=== PATIENT | male | born 1990 | race African-American/Black ===

== ENCOUNTER 2022-12-16 17:38 | Inpatient (IN) | payer OTHER ==
[2022-12-16 18:22] VITALS: BMI 23.7
[2022-12-16] MEDS ORDERED: MAG HYDROX/AL HYDROX/SIMETH 30 ML UNIT-DOSE CUP PO PRN (22:10)
[2022-12-16] MEDS ORDERED: NALOXONE HCL (KLOXXADO) 8 MG SPRAY NS PRN (22:10)
[2022-12-16] MEDS ORDERED: chlordiazePOXIDE HCL 25 MG CAPSULE PO PRN (22:10)
[2022-12-16] MEDS ORDERED: chlordiazePOXIDE HCL 25 MG CAPSULE PO ONE (22:10)
[2022-12-16] MEDS ORDERED: MAGNESIUM HYDROX 2400MG/30ML ORAL SUSPENSION 30 ML CUP PO PRN (22:10)
[2022-12-16] MEDS ORDERED: LOPERAMIDE HCL 2 MG CAPSULE PO PRN (22:10)
[2022-12-16] MEDS ORDERED: BENZOCAINE/MENTHOL (CHLORASEPTIC ) LOZENGE MM PRN (22:10)
[2022-12-16] MEDS ORDERED: NALOXONE HCL 0.4 MG/ML VIAL IM PRN (22:10)
[2022-12-16] MEDS ORDERED: IBUPROFEN 600 MG TABLET (FP) PO PRN (22:10)
[2022-12-16] MEDS ORDERED: BENZONATATE 200 MG CAPSULE PO PRN (22:10)
[2022-12-16] MEDS ORDERED: IBUPROFEN 400 MG TABLET (FP) PO PRN (22:10)
[2022-12-16] MEDS ORDERED: guaiFENesin 600 MG TABLET.ER (FP) PO PRN (22:10)
[2022-12-16] MEDS ORDERED: ACETAMINOPHEN 325 MG TABLET (FP) PO PRN (22:10)
[2022-12-16] MEDS ORDERED: hydrOXYzine PAMOATE 25 MG CAPSULE (FP) PO PRN (22:10)
[2022-12-16] MEDS ORDERED: POLYETHYLENE GLYCOL (HEALTHYLAX) 3350 17 GM PACKET PO PRN (22:10)
[2022-12-16] MEDS ORDERED: DICYCLOMINE HCL 10 MG CAPSULE PO PRN (22:10)
[2022-12-16] MEDS ORDERED: METHOCARBAMOL 500 MG TABLET PO PRN (22:10)
[2022-12-16] MEDS ORDERED: ONDANSETRON *ODT* 4 MG TABLET SL PRN (22:10)
[2022-12-16] MEDS ORDERED: BISMUTH SUBSALICYLATE 524 MG/30 ML PO PRN (22:10)
[2022-12-16] MEDS ORDERED: chlordiazePOXIDE HCL 25 MG CAPSULE ONE (23:05)
[2022-12-16] MEDS: chlordiazePOXIDE HCL 25 MG CAPSULE PO SCH (23:23)
[2022-12-17] MEDS: chlordiazePOXIDE HCL 25 MG CAPSULE PO SCH ×4 (06:00→22:52)
[2022-12-17] MEDS: PRENATAL VITAMINS W/ FOLIC ACID TABLET (FP) PO SCH (10:33)
[2022-12-17] MEDS ORDERED: cloNIDine HCL 0.1 MG TABLET PO PRN (13:02)
[2022-12-17] MEDS: THIAMINE HCL 100 MG TABLET (FP) PO SCH (22:52)
[2022-12-17] MEDS: MELATONIN 5 MG TABLETS PO SCH (22:58)
[2022-12-18] MEDS: chlordiazePOXIDE HCL 25 MG CAPSULE PO SCH ×4 (06:06→22:34)
[2022-12-18] MEDS: PRENATAL VITAMINS W/ FOLIC ACID TABLET (FP) PO SCH (10:20)
[2022-12-18] MEDS: THIAMINE HCL 100 MG TABLET (FP) PO SCH (22:35)
[2022-12-18] MEDS: MELATONIN 5 MG TABLETS PO SCH (22:35)
[2022-12-19] MEDS ORDERED: chlordiazePOXIDE HCL 10 MG CAPSULE PO PRN
[2022-12-19] MEDS: chlordiazePOXIDE HCL 10 MG CAPSULE PO SCH ×2 (05:58→10:25)
[2022-12-19 09:22] VITALS: BP 134/74; PULSE 77; RESP 16; TEMP 98.6
[2022-12-19] MEDS: PRENATAL VITAMINS W/ FOLIC ACID TABLET (FP) PO SCH (10:25)
[2022-12-20] MEDS ORDERED: chlordiazePOXIDE HCL 10 MG CAPSULE PO SCH (05:00)
[2022-12-21] MEDS ORDERED: chlordiazePOXIDE HCL 10 MG CAPSULE PO ONE (05:00)
== END 2022-12-19 15:12 | disposition left against medical advice (07) | DRG 770 ==
LOC: YASAS 17:38 → Y3N 22:46 → Y6N 22:48
PROVIDERS: ADMIT Allergy & Immunology; ATTEND Surgery
PROC: HZ2ZZZZ Detoxification Services for Substance Abuse Treatment (ICD-10-PCS; principal; 2022-12-16)
DX: F10.230 Alcohol dependence with withdrawal, uncomplicated (principal); F14.20 Cocaine dependence, uncomplicated; F15.20 Other stimulant dependence, uncomplicated; F17.210 Nicotine dependence, cigarettes, uncomplicated; R03.0 Elevated blood-pressure reading, without diagnosis of hypertension
CPT/HCPCS: 87635

== ENCOUNTER 2022-12-21 10:16 | Inpatient (IN) | payer OTHER ==
[2022-12-21 10:42] VITALS: BMI 24.3
[2022-12-21 20:41] VITALS: TEMP 98
[2022-12-21] MEDS ORDERED: MAG HYDROX/AL HYDROX/SIMETH 30 ML UNIT-DOSE CUP PO PRN (20:42)
[2022-12-21] MEDS ORDERED: ACETAMINOPHEN 325 MG TABLET (FP) PO PRN (20:42)
[2022-12-21] MEDS ORDERED: MAGNESIUM HYDROX 2400MG/30ML ORAL SUSPENSION 30 ML CUP PO PRN (20:42)
[2022-12-21] MEDS ORDERED: METHOCARBAMOL 500 MG TABLET PO PRN (20:42)
[2022-12-21] MEDS ORDERED: LOPERAMIDE HCL 2 MG CAPSULE PO PRN (20:42)
[2022-12-21] MEDS ORDERED: NICOTINE POLACRILEX 2 MG GUM BUC PRN (20:42)
[2022-12-21] MEDS ORDERED: IBUPROFEN 400 MG TABLET (FP) PO PRN (20:42)
[2022-12-21] MEDS ORDERED: IBUPROFEN 600 MG TABLET (FP) PO PRN (20:42)
[2022-12-21] MEDS ORDERED: POLYETHYLENE GLYCOL (HEALTHYLAX) 3350 17 GM PACKET PO PRN (20:42)
[2022-12-21] MEDS ORDERED: BENZOCAINE/MENTHOL (CHLORASEPTIC ) LOZENGE MM PRN (20:42)
[2022-12-21] MEDS ORDERED: COLLOIDAL OATMEAL 1 BAR EACH TP PRN (20:42)
[2022-12-21] MEDS ORDERED: hydrOXYzine PAMOATE 25 MG CAPSULE (FP) PO PRN (20:42)
[2022-12-21] MEDS ORDERED: BENZONATATE 200 MG CAPSULE PO PRN (20:42)
[2022-12-21] MEDS ORDERED: guaiFENesin 600 MG TABLET.ER (FP) PO PRN (20:42)
[2022-12-21] MEDS: BACITRACIN 0.9 GM PACKET TP SCH (21:54)
[2022-12-21] MEDS ORDERED: MELATONIN 5 MG TABLETS PO SCH (22:00)
[2022-12-21] MEDS ORDERED: THIAMINE HCL 100 MG TABLET (FP) PO SCH (22:00)
[2022-12-22 07:47] VITALS: BP 124/74; PULSE 76; RESP 16
[2022-12-22] MEDS ORDERED: PRENATAL VITAMINS W/ FOLIC ACID TABLET (FP) PO SCH (10:00)
[2022-12-22] MEDS: BACITRACIN 0.9 GM PACKET TP SCH (10:29)
[2022-12-22] MEDS ORDERED: TUBERCULIN PPD 5 TU/0.1ML VIAL ID ONE (15:37)
== END 2022-12-22 18:30 | disposition home or self-care (01) | DRG 772 ==
LOC: YASAS 10:16 → Y5N 20:13
PROVIDERS: ADMIT Allergy & Immunology; ATTEND Psychiatry & Neurology Pain Medicine
PROC: HZ42ZZZ Group Counseling for Substance Abuse Treatment, Cognitive-Behavioral (ICD-10-PCS; principal; 2022-12-21)
DX: F10.20 Alcohol dependence, uncomplicated (principal); F14.20 Cocaine dependence, uncomplicated; F15.20 Other stimulant dependence, uncomplicated; F17.210 Nicotine dependence, cigarettes, uncomplicated
CPT/HCPCS: 87635

== ENCOUNTER 2022-12-31 03:04 | Emergency (ER) | payer OTHER ==
[2022-12-31 03:13] VITALS: BMI 23.7
[2022-12-31] MEDS ORDERED: ONDANSETRON *ODT* 4 MG TABLET SL ONE (03:27)
[2022-12-31] MEDS ORDERED: ONDANSETRON *ODT* 4 MG TABLET ONE (03:29)
[2022-12-31 07:59] VITALS: BP 126/85; PULSE 81; RESP 20; TEMP 98.7
== END 2022-12-31 07:00 | disposition home or self-care (01) ==
LOC: JER 03:04
DX: R11.0 Nausea (principal); F10.20 Alcohol dependence, uncomplicated; F14.20 Cocaine dependence, uncomplicated; R00.0 Tachycardia, unspecified; Y90.9 Presence of alcohol in blood, level not specified
CPT/HCPCS: 99283-25; Q0162

== ENCOUNTER 2023-01-01 10:50 | Inpatient (IN) | payer OTHER ==
[2023-01-01 12:17] VITALS: BMI 23.0
[2023-01-01] MEDS ORDERED: COLLOIDAL OATMEAL 1 BAR EACH TP PRN (13:14)
[2023-01-01] MEDS ORDERED: POLYETHYLENE GLYCOL (HEALTHYLAX) 3350 17 GM PACKET PO PRN (13:14)
[2023-01-01] MEDS ORDERED: NICOTINE POLACRILEX 4 MG GUM BUC PRN (13:14)
[2023-01-01] MEDS ORDERED: MAGNESIUM HYDROX 2400MG/30ML ORAL SUSPENSION 30 ML CUP PO PRN (13:14)
[2023-01-01] MEDS ORDERED: IBUPROFEN 400 MG TABLET (FP) PO PRN (13:14)
[2023-01-01] MEDS ORDERED: NALOXONE HCL 0.4 MG/ML VIAL IM PRN (13:14)
[2023-01-01] MEDS ORDERED: guaiFENesin 600 MG TABLET.ER (FP) PO PRN (13:14)
[2023-01-01] MEDS ORDERED: NALOXONE HCL (KLOXXADO) 8 MG SPRAY NS PRN (13:14)
[2023-01-01] MEDS ORDERED: LOPERAMIDE HCL 2 MG CAPSULE PO PRN (13:14)
[2023-01-01] MEDS ORDERED: BENZONATATE 200 MG CAPSULE PO PRN (13:14)
[2023-01-01] MEDS ORDERED: MAG HYDROX/AL HYDROX/SIMETH 30 ML UNIT-DOSE CUP PO PRN (13:14)
[2023-01-01] MEDS: PRENATAL VITAMINS W/ FOLIC ACID TABLET (FP) PO SCH (14:56)
[2023-01-01] MEDS ORDERED: TUBERCULIN PPD 5 TU/0.1ML SYRINGE (IN PATIENT USE ONLY) ID ONE (17:16)
[2023-01-01] MEDS ORDERED: TUBERCULIN PPD 5 TU/0.1ML VIAL ID ONE (17:40)
[2023-01-01] MEDS: MELATONIN 5 MG TABLETS PO SCH (23:22)
[2023-01-01] MEDS: THIAMINE HCL 100 MG TABLET (FP) PO SCH (23:22)
[2023-01-02] MEDS: PRENATAL VITAMINS W/ FOLIC ACID TABLET (FP) PO SCH (10:21)
[2023-01-02] MEDS: BENZOCAINE/MENTHOL (CHLORASEPTIC ) LOZENGE MM PRN (10:21)
[2023-01-02] MEDS ORDERED: NICOTINE 14 MG/24 HOURS TOPICAL PATCH TD PRN (11:54)
[2023-01-02] MEDS ORDERED: DICYCLOMINE HCL 10 MG CAPSULE PO PRN (11:54)
[2023-01-02] MEDS ORDERED: BISMUTH SUBSALICYLATE 262 MG/15 ML BTL PO PRN (11:54)
[2023-01-02] MEDS ORDERED: ONDANSETRON *ODT* 4 MG TABLET SL PRN (11:54)
[2023-01-02] MEDS ORDERED: AMMONIUM LACTATE 12% LOTION 225 GM BOTTLE TP PRN (11:54)
[2023-01-02 12:22] LABS: POTASSIUM 3.8 mmol/L (3.5-5.1)
[2023-01-02 12:24] LABS: HEMATOCRIT 43.1 % (35.4-49); HEMOGLOBIN 14.4 GM/dL (11.7-16.9); MCH 28.6 pg (25.7-33.7); MCHC 33.4 g/dl (32.0-35.9); MEAN CELL VOLUME 85.8 fl (80-96); MEAN PLT VOLUME 9.3 fl (7.5-11.1); PLATELET COUNT 207 10^3/uL (134-434); RBC 5.02 M/mm3 (4.00-5.60); RDW 14.7 % (11.9-15.9); WHITE BLOOD COUNT 4.7 K/mm3 (4.0-10.0)
[2023-01-02 12:29] LABS: CALCIUM 8.8 mg/dL (8.5-10.1)
[2023-01-02 12:30] LABS: ALBUMIN 3.3 g/dl (3.4-5.0); BLOOD UREA NITROGEN 12.5 mg/dL (7-18)
[2023-01-02 12:31] LABS: CREATININE 1.1 mg/dL (0.55-1.3)
[2023-01-02 12:33] LABS: BILIRUBIN,TOTAL 0.6 mg/dL (0.2-1)
[2023-01-02 12:54] LABS: SYPHILIS W/ RPR CONF NON-REACTIVE (NONREACTIVE)
[2023-01-02] MEDS: MELATONIN 5 MG TABLETS PO SCH (21:29)
[2023-01-02] MEDS: THIAMINE HCL 100 MG TABLET (FP) PO SCH (21:29)
[2023-01-03] MEDS: hydrOXYzine PAMOATE 25 MG CAPSULE (FP) PO PRN (10:00)
[2023-01-03] MEDS: BACLOFEN 10 MG TABLET (FP) PO PRN ×2 (10:00→22:34)
[2023-01-03] MEDS: PRENATAL VITAMINS W/ FOLIC ACID TABLET (FP) PO SCH (11:33)
[2023-01-03] MEDS ORDERED: PRENATAL VITAMINS W/ FOLIC ACID TABLET (FP) PO PRN (16:41)
[2023-01-03] MEDS: MELATONIN 5 MG TABLETS PO SCH (22:34)
[2023-01-03] MEDS: THIAMINE HCL 100 MG TABLET (FP) PO SCH (22:34)
[2023-01-03] MEDS: BENZOCAINE/MENTHOL (CHLORASEPTIC ) LOZENGE MM PRN (22:34)
[2023-01-04] MEDS: BACLOFEN 10 MG TABLET (FP) PO PRN (09:35)
[2023-01-04] MEDS: BENZOCAINE/MENTHOL (CHLORASEPTIC ) LOZENGE MM PRN ×2 (09:37→21:27)
[2023-01-04] MEDS: hydrOXYzine PAMOATE 25 MG CAPSULE (FP) PO PRN (14:56)
[2023-01-04] MEDS: CLINDAMYCIN PHOSPHATE 1% TOPICAL GEL 30 GM TUBE TP SCH ×2 (19:57→21:37)
[2023-01-04] MEDS: MELATONIN 5 MG TABLETS PO SCH (21:23)
[2023-01-04] MEDS: THIAMINE HCL 100 MG TABLET (FP) PO SCH (21:23)
[2023-01-05] MEDS: BACLOFEN 10 MG TABLET (FP) PO PRN ×2 (06:15→21:18)
[2023-01-05] MEDS: hydrOXYzine PAMOATE 25 MG CAPSULE (FP) PO PRN ×2 (06:15→21:18)
[2023-01-05] MEDS: ACETAMINOPHEN 325 MG TABLET (FP) PO PRN ×2 (06:15→21:18)
[2023-01-05] MEDS: CLINDAMYCIN PHOSPHATE 1% TOPICAL GEL 30 GM TUBE TP SCH ×2 (09:26→21:16)
[2023-01-05] MEDS: BENZOCAINE/MENTHOL (CHLORASEPTIC ) LOZENGE MM PRN (09:32)
[2023-01-05] MEDS: IBUPROFEN 600 MG TABLET (FP) PO PRN ×2 (10:53→16:54)
[2023-01-05 11:34] LABS: URINE APPEARANCE CLEAR; URINE BILIRUBIN NEGATIVE (NEGATIVE); URINE COLOR YELLOW; URINE GLUCOSE (UA) NEGATIVE (NEGATIVE); URINE KETONE NEGATIVE (NEGATIVE); URINE LEUK ESTERASE NEGATIVE (NEGATIVE); URINE NITRITE NEGATIVE (NEGATIVE); URINE PROTEIN NEGATIVE (NEGATIVE)
[2023-01-05] MEDS: THIAMINE HCL 100 MG TABLET (FP) PO SCH (21:16)
[2023-01-05] MEDS: MELATONIN 5 MG TABLETS PO SCH (21:16)
[2023-01-06] MEDS: IBUPROFEN 400 MG TABLET (FP) PO PRN ×2 (06:11→16:57)
[2023-01-06] MEDS: BACLOFEN 10 MG TABLET (FP) PO PRN (06:13)
[2023-01-06] MEDS: hydrOXYzine PAMOATE 25 MG CAPSULE (FP) PO PRN (06:13)
[2023-01-06] MEDS: BENZOCAINE/MENTHOL (CHLORASEPTIC ) LOZENGE MM PRN (06:18)
[2023-01-06] MEDS: CLINDAMYCIN PHOSPHATE 1% TOPICAL GEL 30 GM TUBE TP SCH ×2 (09:51→21:20)
[2023-01-06] MEDS: SULFAMETHOXAZOLE/TRIMETHOPRIM 800MG/160MG D.S. TABLET PO SCH ×2 (10:02→21:19)
[2023-01-06] MEDS: THIAMINE HCL 100 MG TABLET (FP) PO SCH (21:19)
[2023-01-06] MEDS: MELATONIN 5 MG TABLETS PO SCH (21:20)
[2023-01-06] MEDS: ACETAMINOPHEN 325 MG TABLET (FP) PO PRN (22:27)
[2023-01-06 23:16] VITALS: BP 130/83; PULSE 94; RESP 18; TEMP 97.7
[2023-01-07] MEDS: CLINDAMYCIN PHOSPHATE 1% TOPICAL GEL 30 GM TUBE TP SCH (09:40)
[2023-01-07] MEDS: SULFAMETHOXAZOLE/TRIMETHOPRIM 800MG/160MG D.S. TABLET PO SCH (09:40)
== END 2023-01-07 11:16 | disposition short-term general hospital (02) | DRG 772 ==
LOC: YASAS 10:50 → Y3E 16:15
PROVIDERS: ADMIT Allergy & Immunology; ATTEND Psychiatry & Neurology Pain Medicine
PROC: HZ42ZZZ Group Counseling for Substance Abuse Treatment, Cognitive-Behavioral (ICD-10-PCS; principal; 2023-01-01)
DX: F10.20 Alcohol dependence, uncomplicated (principal); F14.20 Cocaine dependence, uncomplicated; F17.210 Nicotine dependence, cigarettes, uncomplicated; F32.A Depression, unspecified; F41.9 Anxiety disorder, unspecified; L02.512 Cutaneous abscess of left hand; L85.3 Xerosis cutis; R19.7 Diarrhea, unspecified; Z59.02 Unsheltered homelessness
CPT/HCPCS: 36415; 80053; 80307; 81003; 85027; 86780; 86803; 87635; 87811; J0475

== ENCOUNTER 2023-03-24 13:38 | Emergency (ER) | payer SELFPAY ==
[2023-03-24 13:43] VITALS: BP 152/81; PULSE 104; RESP 18; TEMP 98.4; BMI 22.3
[2023-03-24] MEDS ORDERED: CLOTRIMAZOLE 1% CREAM TP ONE (14:31)
== END 2023-03-24 16:00 | disposition home or self-care (01) ==
LOC: JERFT 13:38
DX: L85.3 Xerosis cutis (principal); L60.1 Onycholysis; B35.1 Tinea unguium; M79.671 Pain in right foot; M79.672 Pain in left foot
CPT/HCPCS: 99283-25